=== PATIENT | female | born 1995 | race Caucasian/White ===

== ENCOUNTER 2017-06-22 20:55 | Emergency (ER) | payer OTHER ==
[~2017-06-22] VITALS: Ht 165.1 cm; Wt 57.3 kg
[2017-06-22 21:03] VITALS: TEMP 36.9; Ht 165.1 cm; Wt 57.3 kg
[2017-06-22] MEDS ORDERED: ONDANSETRON INJ 2 MG/ML 2 ML VIAL IV STA (21:49)
[2017-06-22] MEDS ORDERED: KETOROLAC TROMETHAMINE 15 MG/ML VIAL IV STA (21:49)
[2017-06-22 21:55] LABS: BASO % 0.5 %; BASO ABS # 0.06 K/uL (0-0.2); EOS % 3.7 %; HEMATOCRIT 41.7 % (37-47); IG# 0.03 K/uL (0.00-0.02); LYMPH % 34.2 %; LYMPH ABS # 3.74 K/uL (1.2-3.4); MEAN CELL VOLUME 92.7 fL (80-100); MEAN CORPUSCULAR HEMOGLOBIN 31.1 pg (25-34); MEAN CORPUSCULAR HGB CONC 33.6 g/dl (32-36); MONO % 6.2 %; MONO ABS # 0.68 K/uL (0.11-0.59); NEUT % 55.1 %; NEUT ABS # 6.01 K/uL (1.4-6.5); PLATELET COUNT 287 K/uL (130-400); RED CELL DISTRIBUTION WIDTH CV 12.6 % (11.5-14.5); RED CELL DISTRIBUTION WIDTH SD 42.5 fL (36.4-46.3); WHITE BLOOD COUNT 10.92 K/uL (4.8-10.8)
[2017-06-22] MEDS ORDERED: KETOROLAC TROMETHAMINE 30 MG/ML VIAL ONE (21:56)
[2017-06-22 22:03] LABS: ALBUMIN 4.4 gm/dl (3.4-5.0); ALT/SGPT 21 U/L (12-78); BLOOD UREA NITROGEN 10 mg/dl (7-18); CALCIUM 9.1 mg/dl (8.5-10.1); CARBON DIOXIDE 30 mmol/L (21-32); CREATININE 0.69 mg/dl (0.60-1.20); GLUCOSE 109 mg/dl (70-99); POTASSIUM 3.2 mmol/L (3.5-5.1); SODIUM 138 mmol/L (136-145)
[2017-06-22 22:06] LABS: ALKALINE PHOSPHATASE 84 U/L (45-117); AST/SGOT 16 U/L (15-37); TOTAL PROTEIN 8.5 gm/dl (6.4-8.2)
--- NOTE | 2017-06-22 22:32 | DIAGNOSTIC IMAGING REPORT ---
PELVIC COMPLETE NON OB CLINICAL HISTORY: 22 years-old Female presenting with pelvic pain, last menstrual period 06/19/2017, severe cramping. TECHNIQUE: Real-time grayscale and color and spectral Doppler ultrasound imaging of the pelvis was performed using a transabdominal probe. COMPARISON: None. FINDINGS: Uterus: Normal. Anteverted. The uterus measures 9.1 x 3.4 x 5.1 cm. Endometrial stripe measures 3-4 mm in thickness. Endometrium normal-appearing. Cervix normal. Right adnexa: Right ovary normal. Right ovary measures 3.5 x 1.5 x 2.1 cm. Normal color Doppler flow and arterial and venous waveforms within the ovarian parenchyma. Left adnexa: Left ovary normal. Left ovary measures 2.6 x 3.7 x 2.1 cm. Normal color Doppler flow and arterial and venous waveforms within the ovarian parenchyma. Other: No free fluid. IMPRESSION: No significant abnormality identified within the pelvis. Electronically signed by: Kurtis Long M.D. 06/22/2017 10:31 PM Dictated Date/Time: 06/22/2017 10:30 PM
--- NOTE | 2017-06-22 22:57 | EMERGENCY ROOM VISIT NOTE ---
History First contact with patient: 21:39 Chief Complaint: ABDOMINAL PAIN Stated Complaint: STOMACH PAINS Nursing Triage Summary: severe mid abdominal pain since yesterday. Patient notes that she has menstral period at this time, and normally cramps go away after a day or at least arent this bad. Patient +nausea. History of Present Illness The patient is a 22 year old female who presents to the Emergency Room with complaints of abdominal pain for the past 2 days. The patient states that she has had pain across her lower abdomen for the past 2 days worsening today. She rates the discomfort a 6/10. The patient currently has her menstrual period. She states that her period started 4 days ago. She typically has severe menstrual cramps, but they usually are in the first few days of her period. She states that the pain woke her up from her sleep today. Pain has been "unbearable." She does state that she had some intermittent sharp pains before her period began. Her periods are typically heavy, but this has been heavier than usual. She states that her periods are regular, but she only has a menstrual period every 2 months. She does not take control pills. She is sexually active. She reports some associated nausea without vomiting. She denies urinary symptoms, abnormal vaginal discharge, or changes in bowel movements. She took one dose of Midol for her pain, but has taken nothing since. She denies any history of abdominal surgeries. She denies history of ovarian cysts, endometriosis or other [employer] issues. Review of Systems A complete 10 point review of systems was reviewed with the patient with pertinent positives and negatives as per history of present illness. All else were negative. Social History Smoking Status: Current Every Day Smoker Current/Historical Medications Scheduled Ondansetron Odt (Zofran Odt), 8 MG SL Q6H Physical Exam Vital Signs Date Time Temp Pulse Resp B/P (MAP) Pulse Ox O2 Delivery O2 Flow Rate FiO2 06/22/17 23:00 74 17 98/62 98 Room Air 06/22/17 21:03 36.9 95 18 136/81 94 Room Air Physical Exam VITALS: Vitals are noted on the nurse's note and reviewed by myself. Vital signs stable. GENERAL: This is a 22-year-old female, in no acute distress, nondiaphoretic, well-developed well-nourished. HEART: Regular rate and rhythm without murmurs gallops or rubs. LUNGS: Clear to auscultation bilaterally without wheezes, rales or rhonchi. ABDOMEN: Positive bowel sounds x 4. Soft, mild tenderness to palpation across the lower abdomen. NEURO: Patient was alert and oriented to person place and time. Medical Decision & Procedures ER Provider Diagnostic Interpretation: PELVIC COMPLETE NON OB FINDINGS: Uterus: Normal. Anteverted. The uterus measures 9.1 x 3.4 x 5.1 cm. Endometrial stripe measures 3-4 mm in thickness. Endometrium normal-appearing. Cervix normal. Right adnexa: Right ovary normal. Right ovary measures 3.5 x 1.5 x 2.1 cm. Normal color Doppler flow and arterial and venous waveforms within the ovarian parenchyma. Left adnexa: Left ovary normal. Left ovary measures 2.6 x 3.7 x 2.1 cm. Normal color Doppler flow and arterial and venous waveforms within the ovarian parenchyma. Other: No free fluid. IMPRESSION: No significant abnormality identified within the pelvis. Laboratory Results 06/22/17 21:15 Red Blood Count 4.50, Mean Corpuscular Volume 92.7, Mean Corpuscular Hemoglobin 31.1, Mean Corpuscular Hemoglobin Concent 33.6, Mean Platelet Volume 11.0, Neutrophils (%) (Auto) 55.1, Lymphocytes (%) (Auto) 34.2, Monocytes (%) (Auto) 6.2, Eosinophils (%) (Auto) 3.7, Basophils (%) (Auto) 0.5, Neutrophils # (Auto) 6.01, Lymphocytes # (Auto) 3.74, Monocytes # (Auto) 0.68, Eosinophils # (Auto) 0.40, Basophils # (Auto) 0.06 06/22/17 21:15 Test 06/22/17 21:15 White Blood Count 10.92 K/uL (4.8-10.8) Red Blood Count 4.50 M/uL (4.2-5.4) Hemoglobin 14.0 g/dL (12.0-16.0) Hematocrit 41.7 % (37-47) Mean Corpuscular Volume 92.7 fL (80-100) Mean Corpuscular Hemoglobin 31.1 pg (25-34) Mean Corpuscular Hemoglobin Concent 33.6 g/dl (32-36) Platelet Count 287 K/uL (130-400) Mean Platelet Volume 11.0 fL (7.4-10.4) Neutrophils (%) (Auto) 55.1 % Lymphocytes (%) (Auto) 34.2 % Monocytes (%) (Auto) 6.2 % Eosinophils (%) (Auto) 3.7 % Basophils (%) (Auto) 0.5 % Neutrophils # (Auto) 6.01 K/uL (1.4-6.5) Lymphocytes # (Auto) 3.74 K/uL (1.2-3.4) Monocytes # (Auto) 0.68 K/uL (0.11-0.59) Eosinophils # (Auto) 0.40 K/uL (0-0.5) Basophils # (Auto) 0.06 K/uL (0-0.2) RDW Standard Deviation 42.5 fL (36.4-46.3) RDW Coefficient of Variation 12.6 % (11.5-14.5) Immature Granulocyte % (Auto) 0.3 % Immature Granulocyte # (Auto) 0.03 K/uL (0.00-0.02) Urine Color YELLOW Urine Appearance CLEAR (CLEAR) Urine pH 8.0 (4.5-7.5) Urine Specific [place] 1.012 (1.000-1.030) Urine Protein NEG (NEG) Urine Glucose (UA) NEG (NEG) Urine Ketones NEG (NEG) Urine Occult Blood 1+ (NEG) Urine Nitrite NEG (NEG) Urine Bilirubin NEG (NEG) Urine Urobilinogen NEG (NEG) Urine Leukocyte Esterase NEG (NEG) Urine WBC (Auto) 1-5 /hpf (0-5) Urine RBC (Auto) 5-10 /hpf (0-4) Urine Hyaline Casts (Auto) 0 /lpf (0-5) Urine Epithelial Cells (Auto) 20-30 /lpf (0-5) Urine Bacteria (Auto) NEG (NEG) Urine Test NEG (NEG) Anion Gap 6.0 mmol/L (3-11) Est Creatinine Clear Calc Drug Dose 117.0 ml/min Estimated GFR () 145.2 Estimated GFR (Non- 125.3 BUN/Creatinine Ratio 14.7 (10-20) Calcium Level 9.1 mg/dl (8.5-10.1) Total Bilirubin 0.2 mg/dl (0.2-1) Direct Bilirubin < 0.1 mg/dl (0-0.2) Aspartate Amino Transf (AST/SGOT) 16 U/L (15-37) Alanine Aminotransferase (ALT/SGPT) 21 U/L (12-78) Alkaline Phosphatase 84 U/L (45-117) Total Protein 8.5 gm/dl (6.4-8.2) Albumin 4.4 gm/dl (3.4-5.0) Medications Administered Medications (Trade) Dose Ordered Sig/Dee Route Start Time Stop Time Status Last Admin Dose Admin Ondansetron HCl (Zofran Inj) 4 mg NOW STAT IV 06/22/17 21:49 06/22/17 21:51 DC 06/22/17 21:59 4 MG Ketorolac Tromethamine (Toradol Inj) 30 mg STK-MED ONCE .ROUTE 06/22/17 21:56 06/22/17 21:57 DC 06/22/17 21:59 15 MG ED Course The patient was evaluated as above. Labs were drawn and IV access was obtained. Patient was medicated with 4 mg Zofran and 15 mg Toradol IV. Pelvic ultrasound was performed and read by radiology as above. Patient was reevaluated and was feeling slightly better. Findings were discussed with the patient. Discharge instructions were reviewed with the patient. The patient verbalized understanding of my assessment and treatment plan and was discharged home in good condition. Medical Decision Differential diagnosis includes ovarian cyst, endometriosis, menstrual cramping , appendicitis, gastroenteritis, colitis, among others. The patient is a 22-year-old female who presents today complaining of pelvic pain. Labs revealed a minimal leukocytosis which may be stress related. Labs were otherwise unremarkable. Urinalysis was not suggestive of infection. Urine was negative. Pelvic ultrasound was performed and was unremarkable. The description of the patient's pain is consistent with menstrual pain. She has some improvement with IV Toradol. The patient has had some issues with irregular periods in the past and I do feel she will benefit from seeing an GAS DESULFURIZER. She was given information and will follow-up as needed. She was instructed to take ibuprofen at home for her pain. I do not suspect infectious cause of her pain. She was instructed to return here if she has worsening pain, vomiting, or any other new/concerning symptoms. She verbalized understanding of my assessment and treatment plan and was discharged home in good condition. Medication Reconcilliation Current Medication List: was personally reviewed by me Blood Pressure Screening Patient's blood pressure: Normal blood pressure Impression Primary Impression: Pelvic pain Departure Information Dispostion Home / Self-Care Condition GOOD Prescriptions Ondansetron Odt (ZOFRAN ODT) 8 Mg Tab 8 MG SL Q6H, #15 TAB Prov: Rand Gay .ROMANA 06/22/17 Referrals Kierra Rodriguez (PCP) Parish Santos MD Patient Instructions My [facility] Additional Instructions You have been treated in the Emergency Department for your Abdominal Pain. Laboratory results and imaging studies have ruled out any emergent causes for your abdominal pain which would warrant admission or surgery. You have been prescribed Zofran to be used for any nausea or vomiting. Take as prescribed. For pain control, you can use the following [id number] medicines (if >12 yo): - Regular strength (325mg/tab) Tylenol (acetaminophen) 2 tabs every 4-6 hours as needed. Do not exceed 12 tablets in a 24 hour period. Avoid taking more than 4 grams (4000 mg) of Tylenol per day. This includes any other sources of acetaminophen you may take on a regular basis. - Regular strength (200 mg/tab) Advil (ibuprofen) 3-4 tabs every 6 hours as needed. Do not exceed a dose of 3200 mg per day. Drink plenty of water and stay well hydrated. As with any trip to the Emergency Department, you should follow-up with your Primary Care Provider from today's visit. You should also contact GAS DESULFURIZER to follow-up. Return to the emergency department if your symptoms persist despite treatment plan outlined above or if the following symptoms occur: Worsening pain, vomiting , fevers or any other new/concerning symptoms.
[2017-06-22 23:00] VITALS: BP 98/62; PULSE 74; O2SAT 98
[2017-06-22] MEDS ORDERED: ONDA8TAB13 SL (23:15)
== END 2017-06-22 23:25 | disposition home or self-care (01) ==
LOC: MERGE 20:56 → C.EDB 20:56
DX: R10.2 Pelvic and perineal pain (principal); F17.200 Nicotine dependence, unspecified, uncomplicated